=== PATIENT | female | born 2000 | race Caucasian/White ===

== ENCOUNTER 2019-10-14 22:26 | Emergency (ER) | payer OTHER ==
[~2019-10-14] VITALS: Ht 162.6 cm; Wt 60.4 kg
[2019-10-14] MEDS ORDERED: IBUPROFEN 600 MG TABLET ONE (22:50)
[2019-10-14] MEDS ORDERED: ACETAMINOPHEN 325 MG TABLET ONE (22:50)
[2019-10-14] MEDS ORDERED: ACETAMINOPHEN 325 MG TABLET PO ONE (23:00)
[2019-10-14] MEDS ORDERED: IBUPROFEN 600 MG TABLET PO ONE (23:00)
[2019-10-14 23:25] LABS: RAPID INFLUENZA A Negative (Negative); RAPID INFLUENZA B Negative (Negative)
[2019-10-14 23:55] VITALS: BP 108/74
== END 2019-10-14 23:57 | disposition home or self-care (01) ==
LOC: ED 23:40
DX: J02.0 Streptococcal pharyngitis (principal)
CPT/HCPCS: 87400; 93005; 99284